=== PATIENT | male | born 1980 | race Caucasian/White ===

== ENCOUNTER 2024-03-02 23:29 | Emergency (ER) | payer MEDICAID, OTHER ==
[~2024-03-02] VITALS: Ht 170.2 cm; Wt 70.0 kg
[2024-03-02 23:31] VITALS: O2SAT 99
[2024-03-03 00:31] LABS: BASOPHILS % 0.5 % (0.0-2.0); EOSINOPHILS % 0.7 % (0.0-5.0); HEMATOCRIT. 45.7 % (42.0-52.0); HEMOGLOBIN. 15.3 g/dL (14.0-18.0); LYMPHOCYTES % 13.4 % (20.0-50.0); MEAN CORPUSCULAR HEMOGLOBIN 32.3 pg (28.0-32.0); MEAN CORPUSCULAR HGB CONC 33.3 g/dL (31.0-37.0); MEAN CORPUSCULAR VOLUME 96.9 fL (80.0-94.0); MEAN PLATELET VOLUME 7.5 fl (7.4-10.4); MONOCYTES % 13.2 % (2.0-8.0); NEUTROPHILS % 72.2 % (40.0-76.0); PLATELET 259 x1000/uL (130-400); RED BLOOD CELL COUNT 4.72 mill/uL (4.7-6.1); RED CELL DISTRIBUTION WIDTH 13.4 % (11.6-14.6)
[2024-03-03 00:38] LABS: CHLORIDE 105 mEq/L (98-107); POTASSIUM 4.2 mEq/L (3.5-5.1); SODIUM 140 mEq/L (136-145)
[2024-03-03 00:39] LABS: CALCIUM 9.6 mg/dL (8.7-10.4); CARBON DIOXIDE 32 mEq/L (21-32)
[2024-03-03 00:44] LABS: CREATININE 1.1 mg/dL (0.6-1.3); GLUCOSE 106 mg/dL (70-105); UREA NITROGEN BLOOD 22 mg/dL (9-23)
[2024-03-03 00:46] LABS: ACETAMINOPHEN < 2 ug/mL (10-30)
[2024-03-03] MEDS: LORAZEPAM 2MG/ML INJ IM ONE (01:07)
[2024-03-03] MEDS: DIPHENHYDRAMINE 50MG/ML VIAL IM ONE (01:08)
[2024-03-03] MEDS: HALOPERIDOL LACTATE 5MG/ML VIAL IM ONE (01:08)
[2024-03-03 01:20] LABS: ETHANOL BLOOD < 10 mg/dL (<10)
[2024-03-03 12:21] LABS: CLARITY URINE CLEAR (CLEAR); COLOR URINE YELLOW (YELLOW); GLUCOSE URINE NEGATIVE (NEGATIVE); KETONES URINE 1+ (NEGATIVE); LEUKOCYTE ESTERASE URINE TRACE (NEGATIVE); NITRITE URINE NEGATIVE (NEGATIVE); OCCULT BLOOD URINE NEGATIVE (NEGATIVE); PROTEIN URINE TRACE (NEGATIVE); SPECIFIC GRAVITY URINE 1.024 (1.005-1.030)
[2024-03-03 12:36] LABS: *AMPHETAMINES SCREEN URINE NEGATIVE (NEGATIVE); *BARBITURATES SCREEN URINE NEGATIVE (NEGATIVE); *BENZODIAZEPINES SCREEN URINE NEGATIVE (NEGATIVE); *COCAINE SCREEN URINE NEGATIVE (NEGATIVE); CANNABINOID URINE SCREEN PRESUMPTIVE POSITIVE (NEGATIVE); METHADONE URINE SCREEN NEGATIVE (NEGATIVE); OPIATES URINE SCREEN NEGATIVE (NEGATIVE); PHENCYCLIDINE URINE SCREEN NEGATIVE (NEGATIVE)
[2024-03-03 12:40] LABS: SQUAMOUS EPITHELIAL CELL URINE RARE /lpf (RARE/1+)
[2024-03-03 12:41] LABS: BACTERIA URINE TRACE
[2024-03-03 12:42] LABS: RBC URINE NONE SEEN /hpf (0-2); WBC URINE 0-2 /hpf (0-2)
[2024-03-03 14:29] VITALS: BP 118/76; PULSE 77; RESP 12; TEMP 98.8
== END 2024-03-03 14:40 | disposition home or self-care (01) ==
LOC: ER 23:37
DX: R46.2 Strange and inexplicable behavior (principal); R51.9 Headache, unspecified; Z85.9 Personal history of malignant neoplasm, unspecified; Z20.822 Contact with and (suspected) exposure to COVID-19
CPT/HCPCS: 36415; 71045; 93005; 99291; 80305; 80048; 81003; 80307; 80329; 80320; 85025; 70450; 96372; 87426; J1200; J1630; J2060; G0480